=== PATIENT | female | born 1940 | race American Indian/Alaskan Native ===

== ENCOUNTER 2021-04-11 15:02 | Inpatient (IN) | payer MEDICARE, MEDICAID, OTHER ==
[2021-04-11] MEDS ORDERED: Sodium Chloride 0.9% 1,000 ML IV ONE (15:13)
[2021-04-11] MEDS ORDERED: Ondansetron 4 MG/2 ML SDV IVPUSH ONE (16:07)
[2021-04-11 16:50] LABS: CARBON DIOXIDE,CO2 22.7 mmol/L (21.0-32.0); POTASSIUM,K 4.1 mmol/L (3.5-5.1)
[2021-04-11] MEDS ORDERED: Piperacillin/Tazobactam 3.375 GM in Sodium Chloride 0.9% 50 ML IV ONE (18:29)
[2021-04-11] MEDS ORDERED: Piperacillin/Tazobactam 3.375 GM in Sodium Chloride 0.9% 50 ML IV SCH (22:30)
[2021-04-11] MEDS: Heparin Sodium 5,000 Units/ML Vial SUBCUT SCH (23:59)
[2021-04-11] MEDS: Acetaminophen 325 MG Tab PO PRN (23:59)
[2021-04-12] MEDS: Dextrose 5%-0.9% NaCl 1,000 ML IV SCH ×3 (00:38→21:01)
[2021-04-12] MEDS ORDERED: Piperacillin/Tazobactam 2.25 GM in Sodium Chloride 0.9% 50 ML IV SCH (01:00)
[2021-04-12] MEDS ORDERED: Piperacillin/Tazobactam 3.375 GM in Sodium Chloride 0.9% 50 ML IV SCH (01:00)
[2021-04-12] MEDS: Piperacillin/Tazobactam 2.25 GM in Sodium Chloride 0.9% 50 ML IV SCH ×3 (03:12→19:04)
[2021-04-12 06:16] LABS: CARBON DIOXIDE,CO2 23.1 mmol/L (21.0-32.0); POTASSIUM,K 3.8 mmol/L (3.5-5.1)
[2021-04-12] MEDS: Heparin Sodium 5,000 Units/ML Vial SUBCUT SCH (11:52)
[2021-04-12] MEDS: Ondansetron 4 MG/2 ML SDV IVPUSH PRN (19:04)
[2021-04-12] MEDS: Dorzolamide 2% Ophth Soln 10 ML Bottle EYEBOTH SCH (21:10)
[2021-04-12] MEDS: Latanoprost 0.005% Ophth Soln 2.5 ML Bottle EYEBOTH SCH (21:10)
[2021-04-13] MEDS: Piperacillin/Tazobactam 2.25 GM in Sodium Chloride 0.9% 50 ML IV SCH (03:44)
[2021-04-13 07:16] LABS: BLOOD UREA NITROGEN,BUN 16 mg/dL (7.0-18.0); CARBON DIOXIDE,CO2 22.8 mmol/L (21.0-32.0); CHLORIDE,CL 114 mmol/L (98-107); GLUCOSE RANDOM 116 mg/dL (74-106); POTASSIUM,K 3.5 mmol/L (3.5-5.1); SODIUM,NA 145 mmol/L (136-145)
[2021-04-13] MEDS: Acetaminophen 325 MG Tab PO PRN (09:07)
[2021-04-13] MEDS: Dorzolamide 2% Ophth Soln 10 ML Bottle EYEBOTH SCH ×2 (09:12→20:41)
[2021-04-13] MEDS: Heparin Sodium 5,000 Units/ML Vial SUBCUT SCH ×2 (11:38)
[2021-04-13] MEDS: Ondansetron 4 MG/2 ML SDV IVPUSH PRN ×3 (12:47→23:12)
[2021-04-13] MEDS: Dextrose 5%-0.9% NaCl 1,000 ML IV SCH ×2 (13:03→20:43)
[2021-04-13] MEDS: Cephalexin 500 MG Cap PO SCH ×2 (18:38→20:42)
[2021-04-13] MEDS: Latanoprost 0.005% Ophth Soln 2.5 ML Bottle EYEBOTH SCH (20:41)
[2021-04-13] MEDS ORDERED: Melatonin 3 MG Tab PO ONE (21:30)
[2021-04-14] MEDS: Heparin Sodium 5,000 Units/ML Vial SUBCUT SCH ×2 (00:12→10:57)
[2021-04-14] MEDS: Dextrose 5%-0.9% NaCl 1,000 ML IV SCH ×2 (04:52→16:33)
[2021-04-14] MEDS: Ondansetron 4 MG/2 ML SDV IVPUSH PRN ×2 (09:30→21:55)
[2021-04-14] MEDS: Cephalexin 500 MG Cap PO SCH ×2 (09:30→21:08)
[2021-04-14 09:32] LABS: BLOOD UREA NITROGEN,BUN 4 mg/dL (7.0-18.0); CARBON DIOXIDE,CO2 22.9 mmol/L (21.0-32.0); CHLORIDE,CL 112 mmol/L (98-107); GLUCOSE RANDOM 129 mg/dL (74-106); POTASSIUM,K 2.9 mmol/L (3.5-5.1); SODIUM,NA 145 mmol/L (136-145)
[2021-04-14] MEDS: Dorzolamide 2% Ophth Soln 10 ML Bottle EYEBOTH SCH ×3 (09:40→21:08)
[2021-04-14] MEDS ORDERED: Magnesium Sulfate/Water 2 GM in Premix Bag 1 BAG IV ONE (11:30)
[2021-04-14] MEDS ORDERED: Potassium Chloride Riders 40 MEQ in Premix Bag 1 BAG IV ONE (11:30)
[2021-04-14] MEDS: Latanoprost 0.005% Ophth Soln 2.5 ML Bottle EYEBOTH SCH (21:10)
[2021-04-14] MEDS ORDERED: Melatonin 3 MG Tab PO ONE (21:28)
[2021-04-14] MEDS: Acetaminophen 325 MG Tab PO PRN (21:55)
[2021-04-15] MEDS: Heparin Sodium 5,000 Units/ML Vial SUBCUT SCH ×3 (00:40→23:23)
[2021-04-15 06:20] LABS: BLOOD UREA NITROGEN,BUN 2 mg/dL (7.0-18.0); CARBON DIOXIDE,CO2 23.1 mmol/L (21.0-32.0); CHLORIDE,CL 111 mmol/L (98-107); GLUCOSE RANDOM 111 mg/dL (74-106); POTASSIUM,K 3.1 mmol/L (3.5-5.1); SODIUM,NA 144 mmol/L (136-145)
[2021-04-15] MEDS ORDERED: Magnesium Sulfate/Water 2 GM in Premix Bag 1 BAG IV ONE (06:49)
[2021-04-15] MEDS ORDERED: Potassium Chloride Riders 40 MEQ in Premix Bag 1 BAG IV ONE ×2 (06:49→09:00)
[2021-04-15] MEDS: Dextrose 5%-0.9% NaCl 1,000 ML IV SCH ×2 (08:12→23:23)
[2021-04-15] MEDS: Pantoprazole 40 MG in Sodium Chloride 0.9% 10 ML IVPUSH SCH (08:22)
[2021-04-15] MEDS: Dorzolamide 2% Ophth Soln 10 ML Bottle EYEBOTH SCH ×2 (08:28→21:27)
[2021-04-15] MEDS: Latanoprost 0.005% Ophth Soln 2.5 ML Bottle EYEBOTH SCH (21:28)
[2021-04-16 06:15] LABS: BLOOD UREA NITROGEN,BUN 1 mg/dL (7.0-18.0); CARBON DIOXIDE,CO2 24.2 mmol/L (21.0-32.0); CHLORIDE,CL 109 mmol/L (98-107); GLUCOSE RANDOM 108 mg/dL (74-106); POTASSIUM,K 3.5 mmol/L (3.5-5.1); SODIUM,NA 145 mmol/L (136-145)
[2021-04-16] MEDS: Pantoprazole 40 MG in Sodium Chloride 0.9% 10 ML IVPUSH SCH (09:45)
[2021-04-16] MEDS: Dorzolamide 2% Ophth Soln 10 ML Bottle EYEBOTH SCH ×2 (09:46→20:40)
[2021-04-16] MEDS: Dextrose 5%-0.9% NaCl 1,000 ML IV SCH (10:25)
[2021-04-16] MEDS: Heparin Sodium 5,000 Units/ML Vial SUBCUT SCH ×2 (11:32→23:34)
[2021-04-16] MEDS ORDERED: Potassium Chloride Riders 40 MEQ in Premix Bag 1 BAG IV ONE (13:36)
[2021-04-16] MEDS ORDERED: Magnesium Sulfate/Water 2 GM in Premix Bag 1 BAG IV SCH (13:45)
[2021-04-16] MEDS ORDERED: POTASSIUM CHLORIDE IV ONE (14:00)
[2021-04-16] MEDS ORDERED: WATER IV ONE (14:00)
[2021-04-16] MEDS ORDERED: SODIUM CHLORIDE 0.9% IV ONE (14:00)
[2021-04-16] MEDS ORDERED: MAGNESIUM SULFATE IV ONE (14:00)
[2021-04-16] MEDS ORDERED: Potassium Chloride 40 MEQ, Magnesium Sulfate 2 GM in Sodium Chloride 0.9% 500 ML IV ONE (14:00)
[2021-04-16] MEDS ORDERED: oxyCODONE 5 MG Tab PO PRN (15:11)
[2021-04-16] MEDS: Phosphorus #1 250 MG Tab PO SCH ×2 (19:38→23:34)
[2021-04-16] MEDS ORDERED: Melatonin 3 MG Tab PO PRN (20:29)
[2021-04-16] MEDS: Latanoprost 0.005% Ophth Soln 2.5 ML Bottle EYEBOTH SCH (20:41)
[2021-04-16] MEDS: Acetaminophen 325 MG Tab PO PRN (20:41)
[2021-04-17] MEDS: Dextrose 5%-0.9% NaCl 1,000 ML IV SCH (04:19)
[2021-04-17] MEDS: Phosphorus #1 250 MG Tab PO SCH ×2 (06:01→11:45)
[2021-04-17 06:51] LABS: BLOOD UREA NITROGEN,BUN 2 mg/dL (7.0-18.0); CARBON DIOXIDE,CO2 24.2 mmol/L (21.0-32.0); CHLORIDE,CL 110 mmol/L (98-107); GLUCOSE RANDOM 98 mg/dL (74-106); POTASSIUM,K 2.8 mmol/L (3.5-5.1); SODIUM,NA 144 mmol/L (136-145)
[2021-04-17] MEDS ORDERED: Magnesium Sulfate/Water 2 GM in Premix Bag 1 BAG IV ONE (07:08)
[2021-04-17] MEDS ORDERED: Potassium Chloride Riders 40 MEQ in Premix Bag 1 BAG IV ONE (07:08)
[2021-04-17] MEDS ORDERED: Potassium Chloride 20 MEQ Tab.ER PO ONE (07:09)
[2021-04-17] MEDS: Pantoprazole 40 MG in Sodium Chloride 0.9% 10 ML IVPUSH SCH (08:25)
[2021-04-17] MEDS ORDERED: Potassium Chloride 40 MEQ, Magnesium Sulfate 2 GM in Sodium Chloride 0.9% 500 ML IV ONE (08:30)
[2021-04-17] MEDS: Dorzolamide 2% Ophth Soln 10 ML Bottle EYEBOTH SCH (09:33)
[2021-04-17] MEDS: Acetaminophen 325 MG Tab PO PRN (10:52)
[2021-04-17] MEDS: Heparin Sodium 5,000 Units/ML Vial SUBCUT SCH (11:45)
[2021-04-17 16:36] VITALS: BP 128/84; PULSE 90
== END 2021-04-17 16:35 | disposition home or self-care (01) | DRG 683 ==
LOC: MW.ED 15:02 → MW.MS 18:42
PROVIDERS: ADMIT Internal Medicine; ATTEND Internal Medicine
PROC: 0D9670Z Drainage of Stomach with Drainage Device, Via Natural or Artificial Opening (ICD-10-PCS; principal; 2021-04-11)
DX: K56.609 Unspecified intestinal obstruction, unspecified as to partial versus complete obstruction (principal); N17.9 Acute kidney failure, unspecified; U07.1 COVID-19; N28.9 Disorder of kidney and ureter, unspecified; Z88.8 Allergy status to other drugs, medicaments and biological substances; N39.0 Urinary tract infection, site not specified; E83.42 Hypomagnesemia; E87.6 Hypokalemia; H40.9 Unspecified glaucoma; E78.00 Pure hypercholesterolemia, unspecified; K63.5 Polyp of colon; Z43.3 Encounter for attention to colostomy; M54.9 Dorsalgia, unspecified; G89.29 Other chronic pain; D64.9 Anemia, unspecified; M06.9 Rheumatoid arthritis, unspecified; Z88.6 Allergy status to analgesic agent; Z79.899 Other long term (current) drug therapy; Z86.16 Personal history of COVID-19; Z98.49 Cataract extraction status, unspecified eye; Z86.73 Personal history of transient ischemic attack (TIA), and cerebral infarction without residual deficits; Z90.49 Acquired absence of other specified parts of digestive tract; Z90.710 Acquired absence of both cervix and uterus; Z85.72 Personal history of non-Hodgkin lymphomas; Z87.442 Personal history of urinary calculi; Z85.038 Personal history of other malignant neoplasm of large intestine
CPT/HCPCS: 36415; 74176; 80053; 81001; 83690; 85025; 87086; 96374; 99285; J2405; J7030; U0002; 74018; 74018-26; 74019; 74019-26; 74250; 74250-26; 80048; 82947; 83605; 83735; 84100; 85027; 87040; 93005; A9270-GY; C9113; J1644; J2543; J3475; J3480; J7040; J7042

== ENCOUNTER 2021-06-03 08:26 | Day surgery (SDC) | payer MEDICARE, MEDICAID ==
[~2021-06-03 08:26] MED LIST: Lactated Ringers 1,000 ML IV SCH; Sodium Chloride 0.9% 10 ML Syringe FLUSH PRN; Sodium Chloride 0.9% 2.5 ML Syringe FLUSH PRN; Sodium Chloride 0.9% 20 ML SDV IV PRN
[2021-06-03] MEDS ORDERED: Propofol 200 MG/20 ML SDV ONE ×3 (09:11→10:55)
[2021-06-03] MEDS ORDERED: fentaNYL 100 MCG/2 ML SDV ONE (09:11)
[2021-06-03] MEDS ORDERED: Ketamine HCL/NACL, ISO-OSM 50 MG/5 ML Syringe ONE (10:01)
[2021-06-03] MEDS ORDERED: Midazolam 1 MG/ML 2 ML SDV ONE (10:01)
[2021-06-03] MEDS ORDERED: Lidocaine 2% 5 ML SDV ONE (10:15)
[2021-06-03 10:53] VITALS: BP 116/64; PULSE 86
== END 2021-06-03 11:34 | disposition home or self-care (01) ==
LOC: MW.SDS 08:26
PROVIDERS: ATTEND Surgery
DX: K52.9 Noninfective gastroenteritis and colitis, unspecified (principal); K29.50 Unspecified chronic gastritis without bleeding; R05.3 Chronic cough; D64.9 Anemia, unspecified; Z85.038 Personal history of other malignant neoplasm of large intestine; R63.4 Abnormal weight loss; M81.0 Age-related osteoporosis without current pathological fracture; Z88.8 Allergy status to other drugs, medicaments and biological substances; Z91.011 Allergy to milk products; Z79.899 Other long term (current) drug therapy; Z90.49 Acquired absence of other specified parts of digestive tract; Z98.890 Other specified postprocedural states; Z87.891 Personal history of nicotine dependence
CPT/HCPCS: 43239; 44389; J2704; J3010; J7120; 00813; 88305; 88342; 99100; J2250

== ENCOUNTER 2021-09-21 15:02 | Emergency (ER) | payer MEDICARE, MEDICAID ==
[2021-09-21 16:46] VITALS: BP 125/65; PULSE 65
== END 2021-09-21 16:55 | disposition home or self-care (01) ==
LOC: MW.ED 15:02
DX: S59.902A Unspecified injury of left elbow, initial encounter (principal); M25.422 Effusion, left elbow; E78.00 Pure hypercholesterolemia, unspecified; Z91.011 Allergy to milk products; Z86.73 Personal history of transient ischemic attack (TIA), and cerebral infarction without residual deficits; Z88.8 Allergy status to other drugs, medicaments and biological substances; W22.09XA Striking against other stationary object, initial encounter
CPT/HCPCS: 73080-26-LT; 73080-LT; 99283